=== PATIENT | female | born 1980 | race Caucasian/White ===

== ENCOUNTER 2020-06-11 10:19 | Outpatient (CLI) | payer BC ==
--- NOTE | 2020-06-11 10:32 | RAD ---
2 VIEWS RIGHT KNEE: Date: 06/11/2020 PROVIDED CLINICAL HISTORY: Pain. FINDINGS: Osteophyte formation is seen about the knee to a mild degree, predominating at the medial femorotibia l joint. There is medial femorotibial joint space narrowing, mild in degree. There is no evidence for fracture or other acute osseous abnormality. Alignment appears anatomic. Joint spaces appear otherwi se preserved. There is no significant knee joint capsular distention apparent. IMPRESSION: Degenerative arthrosis of the right knee as above. POS: [facility]
== END 2020-06-11 10:20 | disposition home or self-care (01) ==
LOC: BICRAD 10:19
PROVIDERS: ATTEND Family Medicine
DX: M25.561 Pain in right knee (principal); M17.11 Unilateral primary osteoarthritis, right knee

== ENCOUNTER 2022-02-13 20:19 | Emergency (ER) | payer BC, SELFPAY ==
[2022-02-13] MEDS ORDERED: Lidocaine 2% PF 5 ML VIAL ONE (22:08)
[2022-02-13] MEDS ORDERED: Boostrix 0.5 ML (Tdap) VIAL ONE (22:10)
== END 2022-02-13 22:54 | disposition home or self-care (01) ==
LOC: ERS 20:19
DX: S90.852A Superficial foreign body, left foot, initial encounter (principal); Z23 Encounter for immunization; W45.8XXA Other foreign body or object entering through skin, initial encounter
CPT/HCPCS: 28190; 90471; 90715; J2001

== ENCOUNTER 2025-08-22 11:08 | Outpatient (CLI) | payer BC | END 2025-08-22 11:09 | disposition home or self-care (01) | LOC: ULT 11:08 | PROVIDERS: ATTEND Family Medicine | DX: N32.81 Overactive bladder (principal) | CPT/HCPCS: 76856 ==